=== PATIENT | female | born 1995 | race Caucasian/White ===

== ENCOUNTER → 2017-04-20 | Outpatient (CLI) | payer BC, MEDICAID ==
[2017-04-20 15:07] LABS: PLATELET COUNT, AUTOMATED 280 K/uL (150-450)
== END ==
LOC: LAB 14:47
PROVIDERS: ATTEND Internal Medicine
DX: L70.0 Acne vulgaris (principal); Z79.899 Other long term (current) drug therapy
CPT/HCPCS: 36415; 82040; 82247; 82248; 82465; 83718; 84075; 84155; 84450; 84460; 84478; 84702; 85025

== ENCOUNTER → 2017-05-23 | Outpatient (CLI) | payer BC, MEDICAID ==
[2017-05-23 15:19] LABS: PLATELET COUNT, AUTOMATED 252 K/uL (150-450)
== END ==
LOC: LAB 15:03
PROVIDERS: ATTEND Internal Medicine
DX: L70.0 Acne vulgaris (principal); Z79.899 Other long term (current) drug therapy
CPT/HCPCS: 36415; 82040; 82247; 82248; 82465; 83718; 84075; 84155; 84450; 84460; 84478; 84702; 85025

== ENCOUNTER → 2017-06-25 | Outpatient (CLI) | payer BC, MEDICAID ==
[2017-06-25 15:02] LABS: PLATELET COUNT, AUTOMATED 265 K/uL (150-450)
== END ==
LOC: LAB 14:19
PROVIDERS: ATTEND Internal Medicine
DX: L70.0 Acne vulgaris (principal); Z79.899 Other long term (current) drug therapy
CPT/HCPCS: 36415; 82040; 82247; 82248; 82465; 83718; 84075; 84155; 84450; 84460; 84478; 84702; 85025

== ENCOUNTER → 2018-04-12 | Outpatient (CLI) | payer BC, MEDICAID ==
[~2018-04-12] MED LIST: PREN-127 PO
[2018-04-12 10:50] LABS: PLATELET COUNT, AUTOMATED 275 K/uL (150-450)
== END ==
LOC: LAB 08:21
PROVIDERS: ATTEND Obstetrics & Gynecology
DX: Z34.01 Encounter for supervision of normal first pregnancy, first trimester (principal); R82.79 Other abnormal findings on microbiological examination of urine
CPT/HCPCS: 36415; 81001; 85025; 86592; 86703; 86762; 86850; 86900; 86901; 87088; 87340

== ENCOUNTER → 2018-04-22 | Outpatient (CLI) | payer BC, MEDICAID ==
[~2018-04-22] MED LIST changes: +ONDA4TAB97 PO
== END ==
LOC: LAB 13:46
PROVIDERS: ATTEND Student in an Organized Health Care Education/Training Program
DX: Z34.91 Encounter for supervision of normal pregnancy, unspecified, first trimester (principal)
CPT/HCPCS: 87491; 87591

== ENCOUNTER → 2018-06-24 | Outpatient (CLI) | payer BC, MEDICAID ==
--- NOTE | 2018-06-24 11:27 | RADIOLOGY IMAGING REPORT ---
FACILITY: [facility] PATIENT NAME: Delma Johns : 1995 MR: [id number] V: [id number] EXAM DATE: ORDERING PHYSICIAN: DONALD ARMENDARIZ TECHNOLOGIST: Location: [facility] Patient: Delma Johns : 1995 Visit/Account:[id number] Date of Sevice: 06/24/2018 EXAMINATION: Ultrasound transabdominal OB > 14 weeks with anatomic evaluation HISTORY: 20 week anatomical survey COMPARISON: None. TECHNIQUE: Transabdominal imaging was performed for assessment of the fetus and maternal pelvic structures. T ransvaginal imaging was not performed. FINDINGS: Placenta: Anterior without previa. Uterus: Gravid, otherwise normal Cervix: Long and closed. Maternal Ovaries: Not visualized. Maternal and other adnexa findings: Not visualized Intrauterine gestations: One. presentation: Variable heart rate: Normal and regular at 146 bpm Amniotic fluid index: 9.56 cm Largest amniotic fluid pocket: 3.84 cm Gestational Parameters: BPD: 4.57 cm 19 weeks/ six days, 61% HC: 17.17 cm 19 weeks/ six days, 51% AC: 14.67 cm 20 weeks/ zero days, 58% FL: 3.19 cm 20 weeks/ zero days, 56% Average ultrasound age (AUA): 20 weeks/zero days, KINGS 11/11/2018 Estimated gestational age by KINGS: 19 weeks/four days, KINGS 11/14/2018 Estimated weight (EFW): 321 grams +/- 47 grams EFW for KINGS: 66 percentile Anatomic Survey: Intracranial structures, 4-chamber heart, stomach, kidneys, urinary bladder, spine, 3-vessel cord and cord insertion are unremarkable. Two upper and two lower extremities visualized. Cardiac ventricula r outflow tracts, palate and lips are unremarkable in appearance. IMPRESSION: Single viable fetus in variable presentation with an estimated gestational age by measur ements of 20 weeks and zero days. The estimated gestational age by LMP is 19 weeks and four days. The estimated weight is 321 g equivalent to the 66th percentile Report Dictated By: Olga Schwartz MD at 06/24/2018 11:17 AM Report E-Signed By: Olga Schwartz MD at 06/24/2018 11:23 AM WSN:[facility]ION
== END ==
LOC: RAD 07:56
PROVIDERS: ATTEND Student in an Organized Health Care Education/Training Program
DX: Z02.9 Encounter for administrative examinations, unspecified (principal)

== ENCOUNTER → 2018-07-31 | Outpatient (CLI) | payer BC, MEDICAID ==
[2018-07-31 10:01] LABS: PLATELET COUNT, AUTOMATED 229 K/uL (150-450)
== END ==
LOC: LAB 08:35
PROVIDERS: ATTEND Student in an Organized Health Care Education/Training Program
DX: Z34.92 Encounter for supervision of normal pregnancy, unspecified, second trimester (principal)
CPT/HCPCS: 36415; 82950; 85025